=== PATIENT | female | born 1960 | race Two or more races ===

== ENCOUNTER 2017-04-10 06:34 | Inpatient (IN) | payer OTHER ==
[~2017-04-10 06:34] MED LIST: TYLENOL325 M2
[2017-04-10] MEDS ORDERED: IBUPROFEN200 M2 PO (07:33)
[2017-04-10 13:38] LABS: INR 0.9 INR (0.9-1.1); PROTHROMBIN TIME 10.2 SECONDS (9.0-13.6)
[2017-04-11 05:50] LABS: BASO % 0.1 % (0-2); HCT-HEMATOCRIT 36.6 % (34.0-49.0); HGB-HEMOGLOBIN 11.8 gm/dl (12.0-15.5); IMMATURE GRANULOCYTES ABSOLUTE 0.05 tho/cmm (0-0.03); IMMATURE GRANULOCYTES PERCENT 0.3 % (0-0.3); LYMPH ABSOLUTE COUNT 1.6 tho/cmm (0.8-4.5); MCHC MEAN CORPUSCULAR HGB CONC 32.2 % (32.0-36.0); MCV (MEAN CELL VOLUME) 86.7 fl (82.0-96.0); MEAN PLATELET VOLUME 10.4 cmc (9.4-12.4); MONO % 5.9 % (0-12); NEUTROPHIL ABSOLUTE COUNT 13.4 tho/cmm (1.6-8.0); NEUTROPHIL-AUTOMATED 13.4 tho/cmm (1.6-8.0); NEUTROPHILS % 83.7 % (40-80); PLATELET COUNT 268 tho/cmm (150-450); RED BLOOD COUNT 4.22 mil/cmm (4.00-5.20); RED CELL DISTRIBUTION WIDTH 12.7 % (12.4-16.4)
[2017-04-13] MEDS ORDERED: ASPIRIN325 M3 PO (10:20)
[2017-04-13] MEDS ORDERED: TYLENOL325 M2 PO (10:21)
[2017-04-13] MEDS ORDERED: ROXICODONE5 M2 PO (10:22)
== END 2017-04-13 14:02 | DRG 470 ==
LOC: SHSC 06:34 → ORE 09:47 → PACU 10:50 → 5EA 11:40
PROVIDERS: ADMIT Orthopaedic Surgery Sports Medicine
PROC: 0SRC0J9 Replacement of Right Knee Joint with Synthetic Substitute, Cemented, Open Approach (ICD-10-PCS; principal; 2017-04-10)
DX: M17.11 Unilateral primary osteoarthritis, right knee (principal)
CPT/HCPCS: C1713; C1776; J0171; J0690; J2270; J2405; J2795